=== PATIENT | male | born 1970 | race Two or more races ===

== ENCOUNTER 2018-04-27 19:50 | Emergency (ER) | payer OTHER | END 2018-04-27 21:00 | disposition home or self-care (01) | LOC: ER 19:50 | DX: S13.4XXA Sprain of ligaments of cervical spine, initial encounter (principal); M47.892 Other spondylosis, cervical region; M48.02 Spinal stenosis, cervical region; V43.52XA Car driver injured in collision with other type car in traffic accident, initial encounter; Y93.I9 Activity, other involving external motion; Y99.8 Other external cause status; Y92.488 Other paved roadways as the place of occurrence of the external cause | CPT/HCPCS: 72125; 99284-25 ==

== ENCOUNTER 2019-07-30 19:00 | Emergency (ER) | payer SELFPAY ==
[~2019-07-30] VITALS: Ht 172.7 cm; Wt 95.3 kg
[~2019-07-30 19:00] MED LIST: CYCL10TA2 PO; METH4TAB2 PO; NAPR-514 PO
--- NOTE | 2019-07-30 19:49 | PHYS DOC ---
Past Medical History Past Medical History: Other Additional Past Medical Histor: "BROKE MY BACK A LONG TIME AGO" Past Surgical History: Other Additional Past Surgical Histo: TESTICULAR Alcohol Use: Occasionally Drug Use: None Adult General Chief Complaint Chief Complaint: SHORTNESS OF BREATH HPI HPI Patient is a 49 year olD male presenting with chief complaint of shortness of breath has been going on for about 4 days he sometimes gets tired when he sat work he says it just kind,'s were told he woke up last night he went to the bathroom he said he just felt like he needed to get air he describes some upper left pectoral area chest tenderness and some sharp pain in that area that radiates down to his left elbow at times gets intermittent worse with palpation and moving his shoulder. He denies previous past medical history does drink alcohol occasionally does not smoke denies drugs no allergies no recent travel no leg swelling Review of Systems Review of Systems Constitutional: Denies fever or chills [] Eyes: Denies change in visual acuity, redness, or eye pain [] HENT: Denies nasal congestion or sore throat [] Respiratory: Cardiovascular: No additional information not addressed in HPI [] GI: Denies abdominal pain, nausea, vomiting, bloody stools or diarrhea [] Mild headache Endocrine: Denies polyuria or polydipsia [] All other systems were reviewed and found to be within normal limits, except as documented in this note. Current Medications Current Medications Current Medications Medications (Trade) Dose Ordered Sig/Flavio Start Time Stop Time Status Last Admin Dose Admin Info (CONTRAST GIVEN -- Rx MONITORING) 1 each PRN DAILY PRN 07/30/19 21:15 07/31/19 00:14 DC Iohexol (Omnipaque 350 Mg/ml) 100 ml 1X ONCE 07/30/19 21:15 07/30/19 21:16 DC Allergies Allergies Allergies Coded Allergies Type Severity Reaction Last Updated Verified No Known Drug Allergies 11/05/15 No Physical Exam Physical Exam Constitutional: Well developed, well nourished, no acute distress, non-toxic appearance. [] HENT: Normocephalic, atraumatic, bilateral external ears normal, oropharynx moist, no oral exudates, nose normal. [] Eyes: PERRLA, EOMI, conjunctiva normal, no discharge. [] Neck: Normal range of motion, no tenderness, supple, no stridor. [] Cardiovascular:Heart rate regular rhythm, no murmur [] Lungs & Thorax: Bilateral breath sounds clear to auscultation []there is mild chest wall tenderness in the left pectoralis region that reproduces the pain Abdomen: Bowel sounds normal, soft, no tenderness, no masses, no pulsatile masses. [] Skin: Warm, dry, no erythema, no rash. [] Back: No tenderness, no CVA tenderness. [] Extremities: No tenderness, no cyanosis, no clubbing, ROM intact, no edema. [] Neurologic: Alert and oriented X 3, normal motor function, normal sensory function, no focal deficits noted. [] Psychologic: Affect normal, judgement normal, mood is slightly anxious possibly Current Patient Data Vital Signs Vital Signs Date Time Temp Pulse Resp B/P (MAP) Pulse Ox O2 Delivery O2 Flow Rate FiO2 07/30/19 19:22 98.0 73 21 130/76 (94) 99 Room Air 98.0 Lab Values Laboratory Tests Test 07/30/19 20:00 White Blood Count 6.8 x10^3/uL (4.0-11.0) Red Blood Count 5.14 x10^6/uL (4.30-5.70) Hemoglobin 14.7 g/dL (13.0-17.5) Hematocrit 43.6 % (39.0-53.0) Mean Corpuscular Volume 85 fL (79-100) Mean Corpuscular Hemoglobin 29 pg (25-35) Mean Corpuscular Hemoglobin Concent 34 g/dL (31-37) Red Cell Distribution Width 14.7 % (11.5-14.5) H Platelet Count 216 x10^3/uL (140-400) Neutrophils (%) (Auto) 63 % (31-73) Lymphocytes (%) (Auto) 24 % (24-48) Monocytes (%) (Auto) 9 % (0-9) Eosinophils (%) (Auto) 3 % (0-3) Basophils (%) (Auto) 1 % (0-3) Neutrophils # (Auto) 4.3 x10^3/uL (1.8-7.7) Lymphocytes # (Auto) 1.7 x10^3/uL (1.0-4.8) Monocytes # (Auto) 0.6 x10^3/uL (0.0-1.1) Eosinophils # (Auto) 0.2 x10^3/uL (0.0-0.7) Basophils # (Auto) 0.0 x10^3/uL (0.0-0.2) Prothrombin Time 12.5 SEC (11.7-14.0) Prothrombin Time INR 1.0 (0.8-1.1) D-Dimer (Sneha) 1.04 ug/mlFEU (0.00-0.50) H Sodium Level 143 mmol/L (136-145) Potassium Level 3.7 mmol/L (3.5-5.1) Chloride Level 107 mmol/L (98-107) Carbon Dioxide Level 25 mmol/L (21-32) Anion Gap 11 (6-14) Blood Urea Nitrogen 21 mg/dL (8-26) Creatinine 0.9 mg/dL (0.7-1.3) Estimated GFR (Cockcroft-Gault) 89.0 BUN/Creatinine Ratio 23 (6-20) H Glucose Level 117 mg/dL (70-99) H Calcium Level 9.2 mg/dL (8.5-10.1) Total Bilirubin 0.2 mg/dL (0.2-1.0) Aspartate Amino Transferase (AST) 13 U/L (15-37) L Alanine Aminotransferase (ALT) 22 U/L (16-63) Alkaline Phosphatase 69 U/L (46-116) Troponin I Quantitative < 0.017 ng/mL (0.000-0.055) JK-Pfr-I-Type Natriuretic Peptide 22 pg/mL (0-124) Total Protein 7.0 g/dL (6.4-8.2) Albumin 3.7 g/dL (3.4-5.0) Albumin/Globulin Ratio 1.1 (1.0-1.7) Laboratory Tests 07/30/19 20:00 Laboratory Tests 07/30/19 20:00 EKG EKG []Normal sinus rhythm rate of 65 no acute ischemic changes noted there is some nonspecific flattening of the T waves in V4 V5 in the inferior leads but nonspecific no obvious ischemia was identified Radiology/Procedures Radiology/Procedures IMPRESSION: 1. No pulmonary embolus identified within the main, lobar or segmental pulmonary arteries. 2. A 6.0 x 2.0 cm hyperattenuating structure adjacent to the right heart, which is nonspecific in etiology and may represent partially calcified pericardial cyst. Recommend correlation with any prior imaging if available to determine stability. 3. Several pulmonary nodules, largest measuring 7 mm. 6 month follow-up chest CT is recommended. 4. Right adrenal myolipoma. Exposure: One or more of the following in the visualized dose reduction techniques were utilized for this examination: 1. Automated exposure control 2. Adjustment of the MA and/or KV according to patient size 3. Use of iterative of reconstructive technique Electronically signed by: Abimael Silver MD (07/30/2019 9:45 PM) [facility] [id number] [] Impressions: Mitral patient chest x-ray was negative acute similar appearance of the right lesion near the right heart border as last time Course & Med Decision Making Course & Med Decision Making Pertinent Labs and Imaging studies reviewed. (See chart for details) []Nonspecific shortness of breath sensation of trouble getting air however 97% saturation patient is in no respiratory distress at all plan to do usual ER workup I do not think this is acute coronary syndrome has been going on for 4 days EKG is nonspecific wound check troponin and d-dimer chest x-ray is clear I did tell the patient about the lung nodules and the need for follow-up he says that he was told the lung nodules long time ago when he had pneumonia I did tell him about the importance of repeat test anyway within 6-12 months PE study negative otherwise no evidence of acute coronary syndrome CHF or other issues. Patient was given a prescription for Ativan as needed LIKELY STRESS THATS HIS IMPRESSION WELL MINE. Dragon Disclaimer Dragon Disclaimer This electronic medical record was generated, in whole or in part, using a voice recognition dictation system. Departure Departure Impression: Primary Impression: Shortness of breath Disposition: 01 HOME, SELF-CARE Condition: STABLE Referrals: NO PCP (PCP) Scripts Lorazepam (ATIVAN) 0.5 Mg Tablet 0.5 MG PO DAILY PRN for ANXIETY / AGITATION, #10 TAB Prov: LENA PENA MD 07/31/19 LENA PENA MD Jul 30, 2019 19:49
[2019-07-30 20:19] LABS: BASO % 1 % (0-3); EOS # 0.2 x10^3/uL (0.0-0.7); EOS % 3 % (0-3); HEMATOCRIT 43.6 % (39.0-53.0); HEMOGLOBIN 14.7 g/dL (13.0-17.5); LYMPH # 1.7 x10^3/uL (1.0-4.8); LYMPH % 24 % (24-48); MEAN CORPUSCULAR HEMOGLOBIN 29 pg (25-35); MEAN CORPUSCULAR HGB CONC 34 g/dL (31-37); MEAN CORPUSCULAR VOLUME 85 fL (79-100); MONO # 0.6 x10^3/uL (0.0-1.1); MONO % 9 % (0-9); NEUT # 4.3 x10^3/uL (1.8-7.7); NEUT % 63 % (31-73); PLATELET COUNT 216 x10^3/uL (140-400); RED BLOOD COUNT 5.14 x10^6/uL (4.30-5.70); RED CELL DISTRIBUTION WIDTH 14.7 % (11.5-14.5); WHITE BLOOD COUNT 6.8 x10^3/uL (4.0-11.0)
[2019-07-30 20:28] LABS: CALCIUM 9.2 mg/dL (8.5-10.1); CREATININE 0.9 mg/dL (0.7-1.3); POTASSIUM 3.7 mmol/L (3.5-5.1)
[2019-07-30 20:34] LABS: ALBUMIN 3.7 g/dL (3.4-5.0); ALBUMIN/GLOBULIN RATIO 1.1 (1.0-1.7); TOTAL BILIRUBIN 0.2 mg/dL (0.2-1.0)
[2019-07-30 20:43] LABS: PROTHROMBIN TIME PATIENT 12.5 SEC (11.7-14.0)
[2019-07-30 20:50] LABS: D-DIMER 1.04 ug/mlFEU (0.00-0.50)
[2019-07-30] MEDS ORDERED: IOHEXOL 350 MG/ML 100 ML VIAL. IV ONE (21:15)
[2019-07-30] MEDS ORDERED: CONTRAST GIVEN. MC PRN (21:15)
--- NOTE | 2019-07-30 21:48 | RAD ---
Exam: CT of chest with contrast INDICATION: Shortness of air TECHNIQUE: Sequential axial images through the chest obtained 70 mL of Isovue-370 IV contrast. Sagittal and coronal reformatted images were reconstructed from the axial data and reviewed. Comparisons: None FINDINGS: Utilized portions of the thyroid are unremarkable. No enlarged mediastinal lymph nodes. Heart size is normal. No pericardial effusion. Thoracic aorta has normal course and caliber. Pulmonary artery is not enlarged. No pulmonary embolus identified within the main, lobar or proximal segmental pulmonary arteries. Adjacent to the right atrium there is a 6.0 x 2.0 cm hyperattenuating, likely peripherally calcified cystic structure. Airways are patent. No consolidation or pneumothorax. 7 mm nodule in the right lower lobe series 3 image 100. 6 mm nodule right lower lobe series 3 image 84. No pleural effusion or thickening. Right adrenal myolipoma is noted. Otherwise, visualized upper abdomen is unremarkable. No suspicious osseous lesions or acute fractures. IMPRESSION: 1. No pulmonary embolus identified within the main, lobar or segmental pulmonary arteries. 2. A 6.0 x 2.0 cm hyperattenuating structure adjacent to the right heart, which is nonspecific in etiology and may represent partially calcified pericardial cyst. Recommend correlation with any prior imaging if available to determine stability. 3. Several pulmonary nodules, largest measuring 7 mm. 6 month follow-up chest CT is recommended. 4. Right adrenal myolipoma. Exposure: One or more of the following in the visualized dose reduction techniques were utilized for this examination: 1. Automated exposure control 2. Adjustment of the MA and/or KV according to patient size 3. Use of iterative of reconstructive technique Electronically signed by: Abimael Silver MD (07/30/2019 9:45 PM) [facility] [id number]
--- NOTE | 2019-07-30 22:07 | RAD ---
AP portable chest radiograph 07/30/2019 Clinical History: Shortness of breath and weakness. An AP erect portable digital radiograph of the chest was obtained. Comparison study is dated 12/21/2015. The cardiac silhouette is normal in size. The thoracic aorta is mildly tortuous. A rounded opacity is seen adjacent to the right heart border which likely represents a pericardial cyst. It is unchanged. No acute pulmonary infiltrate is seen. No pleural effusion or pneumothorax is noted. Degenerative changes are seen involving the thoracic spine along with both shoulders. IMPRESSION: No acute abnormality is seen Electronically signed by: Armand Lechuga MD (07/30/2019 10:04 PM) [facility]
[2019-07-30 23:55] VITALS: BP 105/72
[2019-07-31] MEDS ORDERED: LORA0.5T96 PO (00:09)
--- NOTE | 2019-07-31 11:20 | EKG ---
[facility] [address] [place] [address] Test Date: 2019-07-30 Test Time: 19:53:10 Pat Name: JOE BETH Department: Room: Gender: M [employer] Clerk: [id number] : 1970 Requested By: LENA PENA Order Number: [id number] Reading MD: Measurements Intervals Eugene Rate: 64 P: 22 AK: 160 QRS: 63 QRSD: 80 T: 17 QT: 376 QTc: 391 Interpretive Statements SINUS RHYTHM NON SPECIFIC T ABNORMALITY BORDERLINE ECG No previous ECG available for comparison
== END 2019-07-30 23:59 | disposition home or self-care (01) ==
LOC: ER 19:00
DX: R06.02 Shortness of breath (principal); R51 Headache
CPT/HCPCS: 36415; 71045; 71275; 80053; 83880; 84484; 85025; 85379; 85610; 93005; 99285